=== PATIENT | male | born 1980 | race Caucasian/White ===

== ENCOUNTER 2017-06-06 10:48 | Emergency (ER) | payer OTHER ==
[2017-06-06 11:01] VITALS: TEMP 98
[2017-06-06] MEDS ORDERED: IBUPROFEN 600 MG TAB PO ONE (11:04)
[2017-06-06] MEDS ORDERED: LET GEL TOPICAL 1 EA SYR TP ONE (11:05)
--- NOTE | 2017-06-06 11:05 | EDPHY ---
H & P Stated Complaint: dropped transfer case onto rt hand ~ 30 min ago Time Seen by Provider: 06/06/17 10:55 HPI/ROS: Chief Complaint: Right hand injury HPI: 37-year-old male was working on his car when he dropped a transfer case onto his right hand. Fell approximately 2 feet. He sustained a laceration at the base of his index finger. He has been unable to flex that finger since that time. Denies any other injuries. Last tetanus shot was within the last year. ROS: 10 point Review of Systems is negative except as noted in the HPI. PMH: Denies Social History: [No] smoking, [no] alcohol, [ no recreational drug use] Family History: [non-contributory] Physical Exam: General: Awake, alert, no acute distress Right hand: He has a 2 cm laceration over his distal 2nd metacarpal just proximal to the MCP joint on his palmar aspect. He is unable to flex either his interphalangeal joints or his MCP joint. Sensations intact medially and laterally. He has full extension strength. Capillary refills less than 2 seconds. Skin: No rash - Personal History Current Tetanus Diphtheria and Acellular Pertussis (TDAP): Yes Constitutional: Initial Vital Signs Temperature (C) 36.6 C 06/06/17 10:58 Heart Rate 85 06/06/17 10:58 Respiratory Rate 18 06/06/17 10:58 Blood Pressure 174/62 H 06/06/17 10:58 O2 Sat (%) 97 06/06/17 10:58 O2 Delivery Mode Room Air Allergies/Adverse Reactions: ADHESIVES Allergy (Mild, Uncoded 09/05/10 09:56) Rash Home Medications: Medication Instructions Recorded Cephalexin [Keflex (*)] 500 mg PO Q6H #28 cap 06/06/17 Medical Decision Making - Diagnostics Imaging Results: No acute fractures or radiopaque foreign bodies per my interpretation Imaging: I viewed and interpreted images myself Procedures: Procedure: Laceration repair. Verbal consent was obtained from the patient. The 2 cm laceration on the right- hand was anesthetized in the usual fashion. The wound was irrigated, draped and explored to its base with a gloved finger. There were no deep structures involved. A tendon was identified. The wound was repaired with 3, 4-0 Ethilon simple interrupted sutures. The wound repair was uncomplicated. The procedure was performed by myself. ED Course/Re-evaluation: Case discussed with Dr. Blankenship, hand surgeon. He would like the wound irrigated. IV Ancef. A loose closure and he will see the patient in his office tomorrow for definitive repair. Patient has been irrigated with 2 L normal saline. I have done a loose closure. Patient has been bandage in splinted. Will follow up with Dr. Blankenship tomorrow. Patient sent home with a prescription for Keflex. He received 1 g of Ancef in the ED. - Data Points Medications Given: Discontinued Medications Cefazolin Sodium/Dextrose (Ancef 1 Gm (Premix)) 50 mls @ 200 mls/hr IV EDNOW ONE PRN Reason: Protocol Stop: 06/06/17 11:49 Last Admin: 06/06/17 11:49 Dose: 50 mls Ibuprofen (Motrin) 600 mg PO EDNOW ONE Stop: 06/06/17 11:05 Last Admin: 06/06/17 11:19 Dose: 600 mg Tetracaine/Epinephrine/Lidocaine (Let Gel Topical) 1 ea TP EDNOW ONE Stop: 06/06/17 11:06 Last Admin: 06/06/17 11:19 Dose: 1 ea Departure - Departure Disposition: Home, Routine, Self-Care Clinical Impression: Tendon laceration, Hand laceration Condition: Good Instructions: Laceration (ED), Tendon Laceration (ED) Additional Instructions: Leave the dressing in place until your seen by Hand surgery. Take her full course of oral antibiotics. Follow up with the hand surgeon, Dr. Blankenship, tomorrow, call tomorrow morning for the next appointment. Referrals: NONE *PRIMARY CARE P,. [Primary Care Provider] - As per Instructions Justice Blankenship MD [Medical Doctor] - As per Instructions Prescriptions: Cephalexin [Keflex (*)] 500 mg PO Q6H #28 cap
[2017-06-06] MEDS ORDERED: ceFAZolin 1 GM VIAL ONE (11:43)
[2017-06-06 14:48] VITALS: BP 102/62; PULSE 55; RESP 16; O2SAT 95
== END 2017-06-06 12:46 | disposition home or self-care (01) ==
LOC: CED 10:48
PROC: 0HQFXZZ Repair Right Hand Skin, External Approach (ICD-10-PCS; principal; 2017-06-06)
DX: S66.921A Laceration of unspecified muscle, fascia and tendon at wrist and hand level, right hand, initial encounter (principal); W20.8XXA Other cause of strike by thrown, projected or falling object, initial encounter
CPT/HCPCS: 73130-PO; 96365; J0690; L3925

== ENCOUNTER 2017-06-08 11:57 | Day surgery (SDC) | payer OTHER ==
--- NOTE | 2017-06-08 10:17 | GHP ---
[f rep st] PREOP HISTORY AND PHYSICAL DATE OF OPERATION: 06/08/2017 CHIEF COMPLAINT: Flexor tendon lacerations, right index finger. HISTORY OF PRESENTING COMPLAINT: The patient is a 37-year-old right-hand- dominant man who was moving a transfer case for an engine when he sustained a puncture laceration to his right hand in the distal palm in line with the index finger. PAST MEDICAL HISTORY: Remarkable just for multiple injuries over the years for femur, shoulder and collarbone at different times. He has no significant medical problems and is a nonsmoker. ALLERGIES: No known drug allergies. MEDICATIONS: No medications routinely. He is on Keflex right now related to the current injury. PHYSICAL EXAMINATION: GENERAL: He is a pleasant healthy-looking 37-year-old male. CARDIOVASCULAR: Heart sounds are normal. RESPIRATORY: Chest is clear with good air entry. EXTREMITIES: Inability to flex the DIP or the PIP of the index finger of the right hand. He has normal sensation. There is a clean closed laceration at the distal palmar crease level. IMPRESSION: Fit for procedure. PLAN: Exploration and repair of flexor tendons, right index finger. /[id number]/MODL MTDD
[~2017-06-08 11:57] MED LIST: ceFAZolin 2 GM/DEXTROSE 100 ML IV ONE
[2017-06-08] MEDS ORDERED: LIDOCAINE 1% 2 ML INJ ONE (12:17)
[2017-06-08] MEDS ORDERED: LIDOCAINE 1% 2 ML INJ ID PRN (12:37)
[2017-06-08] MEDS ORDERED: LR 1,000 ML IV ONE (12:37)
[2017-06-08] MEDS ORDERED: ONDANSETRON 4 MG/2 ML VIAL IVP ONE (12:46)
[2017-06-08] MEDS ORDERED: MIDAZOLAM 2 MG/2 ML VIAL IVP ONE (13:24)
--- NOTE | 2017-06-08 13:26 | PDANEPAE ---
ANE History of Present Illness S/P FINGER LAC ANE Past Medical History - Cardiovascular History Hx Hypertension: No Hx Arrhythmias: No Hx Chest Pain: No Hx Coronary Artery / Peripheral Vascular Disease: No Hx CHF / Valvular Disease: No Hx Palpitations: No - Pulmonary History Hx COPD: No Hx Oxygen in Use at Home: No Hx Sleep Apnea: No - Neurologic History Hx Cerebrovascular Accident: No Hx Seizures: No Hx Dementia: No - Endocrine History Hx Diabetes: No Hypothyroid: No Hyperthyroid: No Obesity: no - Renal History Hx Renal Disorders: No - Liver History Hx Hepatic Disorders: No - Neurological & Psychiatric Hx Hx Neurological and Psychiatric Disorders: No - Cancer History Hx Cancer: No - Surgical History Prior Surgeries: MULTIPLE ORTHOPEDIC ANE Review of Systems Review of systems is: negative - Exercise capacity Exercise capacity: >=4 METS ANE Patient History - Allergies Allergies/Adverse Reactions: ADHESIVES Allergy (Mild, Uncoded 09/05/10 09:56) Rash - Home Medications Home Medications: Acetaminophen [Tylenol Extra Strength] 06/08/17 [Last Taken 06/07/17 22:00] Ibuprofen [Advil] 200 mg PO 06/08/17 [Last Taken 06/07/17 22:00 400 mg] - NPO status NPO Status: no food or drink >8 hours NPO Since - Liquids (Date): 06/07/17 NPO Since - Liquids (Time): 22:00 NPO Since - Solids (Date): 06/07/17 NPO Since - Solids (Time): 22:00 - Anes Hx Anes Hx: no prior problems ANE Labs/Vital Signs - Vital Signs Blood Pressure: 105/69 Heart Rate: 53 Respiratory Rate: 16 O2 Sat (%): 100 Height: 187.96 cm Weight: 61.235 kg ANE Physical Exam - Airway Neck exam: FROM Mallampati Score: Class 1 - Pulmonary Pulmonary: no respiratory distress - Cardiovascular Cardiovascular: regular rate and rhythym - ASA Status ASA Status: II ANE Anesthesia Plan Anesthesia Plan: GA w LMA
[2017-06-08] MEDS ORDERED: LIDO/EPI 1% **for epidural** 30 ML SDV ONE (13:34)
[2017-06-08] MEDS ORDERED: LIDO/EPI 1% **Not for Epidural 20 ML MDV ONE (13:35)
[2017-06-08] MEDS ORDERED: PROPOFOL/EMULSION 500 MG/50 ML BOTTLE IV ONE (13:39)
[2017-06-08] MEDS ORDERED: fentaNYL 100 MCG/2 ML INJ ONE ×2 (13:42→14:29)
[2017-06-08] MEDS ORDERED: PROMETHAZINE HCL 25 MG/ML INJ IVP PRN (14:37)
[2017-06-08] MEDS ORDERED: NALOXONE HCL 0.4 MG/ML INJ IVP PRN (14:37)
[2017-06-08] MEDS ORDERED: ONDANSETRON 4 MG/2 ML VIAL IVP PRN (14:37)
[2017-06-08] MEDS ORDERED: fentaNYL 100 MCG/2 ML INJ IVP PRN ×2 (14:37)
[2017-06-08] MEDS ORDERED: HYDROmorphONE/DILAUDID 1 MG/ML SYR IVP PRN (14:37)
[2017-06-08 16:19] VITALS: BP 108/61; PULSE 53; TEMP 97.3
[2017-06-08 16:20] VITALS: RESP 16; O2SAT 99
--- NOTE | 2017-06-08 20:59 | GOP ---
[f rep st] OPERATIVE REPORT DATE OF OPERATION: 06/08/2017 SURGEON: Justice Blankenship MD PREOPERATIVE DIAGNOSIS: Laceration of flexor tendons, right index finger. POSTOPERATIVE DIAGNOSIS: Laceration of flexor tendons, right index finger. PROCEDURE PERFORMED: Repair of laceration of flexor tendons, right index finger. FINDINGS: ESTIMATED BLOOD LOSS: Less than 10 mL. DESCRIPTION OF PROCEDURE: Patient lying supine under general anesthesia, right hand and forearm wer e prepped and draped in usual fashion. The oblique laceration of the distal palmar crease in the [facility] palm was reopened and extended proximally and distally in a Claudia zigzag fashion. The proxima l ends of the tendons were brought out fairly easily and with maximal flexion of the finger, the dis sade ends were brought out. The laceration was right at the chiasm of [place] with the distal ends of the sublimis tendon being split and the proximal end still attached together. Profundus tendon was fixed 1st using a Chavez 4-strand repair using 4-0 Prolene with a 6-0 Prolene running epitendin ous suture. The superficialis slips were repaired with 5-0 Prolene [id number] sutures. The sk in was then closed with 5-0 Prolene running simple and horizontal mattress sutures. Dressing of Xer oform gauze applied followed by a fiberglass dorsal slab splint. The procedure was tolerated well. TOURNIQUET TIME: 41 minutes. /[id number]/MODL
== END 2017-06-08 16:57 | disposition home or self-care (01) ==
LOC: FSGY 11:57
PROVIDERS: ATTEND Plastic Surgery
PROC: 0LQ70ZZ Repair Right Hand Tendon, Open Approach (ICD-10-PCS; principal; 2017-06-08 13:45)
DX: S66.120A Laceration of flexor muscle, fascia and tendon of right index finger at wrist and hand level, initial encounter (principal)
CPT/HCPCS: J0690; J2250; J2405; J2704; J3010

== ENCOUNTER 2018-02-23 10:36 | Day surgery (SDC) | payer OTHER ==
--- NOTE | 2018-02-22 13:41 | GHP ---
[f rep st] PREOP HISTORY AND PHYSICAL DATE OF ADMISSION: 02/23/2018 PREOP DIAGNOSIS: Tendon adhesions, right index finger. HISTORY OF PRESENTING COMPLAINT: The patient is a 37-year-old male who sustained a laceration to the base of his right index finger in May of 2017 when a transfer case fell on it. He had repair of th e flexor tendons in late May and did well postoperatively. He has reached a point now where he has excellent passive range of motion and good but somewhat restricted active range of motion. Fibrotic tissue and adhesion of the tendon is apparent at the base of the finger. PAST MEDICAL HISTORY: He is generally healthy. He is a daily pot smoker. PAST SURGICAL HISTORY: Includes femur fracture, shoulder, wisdom teeth. ALLERGIES: Environmental allergens. MEDICATIONS: Currently, none. EXAMINATION: GENERAL: He is a healthy, lean 37-year-old male. CARDIOVASCULAR: Heart sounds are nor mal. RESPIRATORY: Chest is clear, with good air entry. IMPRESSION: Fit for procedure. PLAN: Flexor tendon tenolysis, right index finger. /[id number]/MODL
[2018-02-23] MEDS ORDERED: LR 1,000 ML IV ONE (11:09)
[2018-02-23] MEDS ORDERED: LIDOCAINE 1% 2 ML INJ ID PRN (11:09)
[2018-02-23] MEDS ORDERED: BUPIVACAINE 0.5% 30 ML SDV ONE (11:18)
[2018-02-23] MEDS ORDERED: HYDROmorphONE/DILAUDID 1 MG/ML INJ IVP PRN (11:38)
[2018-02-23] MEDS ORDERED: ONDANSETRON 4 MG/2 ML VIAL IVP PRN (11:38)
[2018-02-23] MEDS ORDERED: HYDROCODONE/APAP 5/325 TAB PO PRN (11:38)
[2018-02-23] MEDS ORDERED: ACETAMINOPHEN 500 MG TAB PO PRN (11:38)
[2018-02-23] MEDS ORDERED: fentaNYL 100 MCG/2 ML INJ IVP PRN (11:38)
[2018-02-23] MEDS ORDERED: DEXAMETHASONE 4 MG/ML VIAL IVP PRN (11:38)
[2018-02-23] MEDS ORDERED: NALOXONE HCL 0.4 MG/ML INJ IVP PRN ×2 (11:38→12:54)
[2018-02-23] MEDS ORDERED: ALBUTEROL 3 ML DEYVIAL IH PRN (11:38)
--- NOTE | 2018-02-23 11:40 | PDANEPAE ---
ANE History of Present Illness Right Index Finger ANE Past Medical History - Cardiovascular History Hx Hypertension: No Hx Arrhythmias: No Hx Chest Pain: No Hx Coronary Artery / Peripheral Vascular Disease: No Hx CHF / Valvular Disease: No Hx Palpitations: No - Pulmonary History Hx COPD: No Hx Asthma/Reactive Airway Disease: No Hx Recent Upper Respiratory Infection: No Hx Oxygen in Use at Home: No Hx Sleep Apnea: No Sleep Apnea Screening Result - Last Documented: Negative - Neurologic History Hx Cerebrovascular Accident: No Hx Seizures: No Hx Dementia: No - Endocrine History Hx Diabetes: No - Renal History Hx Renal Disorders: No - Liver History Hx Hepatic Disorders: No - Neurological & Psychiatric Hx Hx Neurological and Psychiatric Disorders: Yes Neurological / Psychiatric History Comment: bipolar no meds, uses marijuana - Cancer History Hx Cancer: No - Congenital Disorder History Hx Congenital Disorders: No - GI History Hx Gastrointestinal Disorders: Yes Gastrointestinal History Comment: hx of abd pain - Chronic Pain History Chronic Pain: No - Surgical History Prior Surgeries: MULTIPLE ORTHOPEDIC ANE Review of Systems Review of Systems: - Exercise capacity METS (RN): 5 METS ANE Patient History - Allergies Allergies/Adverse Reactions: ADHESIVES Allergy (Mild, Uncoded 09/05/10 09:56) Rash - Home Medications Home Medications: Ibuprofen [Advil] 06/08/17 [Last Taken 1 Week Ago ~02/16/18] - NPO status NPO Since - Liquids (Date): 02/23/18 NPO Since - Liquids (Time): 07:30 NPO Since - Solids (Date): 02/23/18 NPO Since - Solids (Time): 00:00 - Smoking Hx Smoking Status: Former smoker - Family Anes Hx Family Hx Anesthesia Complications: none ANE Labs/Vital Signs - Vital Signs Blood Pressure: 117/73 Heart Rate: 52 Respiratory Rate: 16 O2 Sat (%): 97 Height: 187.96 cm Weight: 61.235 kg ANE Physical Exam - Airway Neck exam: FROM Mallampati Score: Class 2 Mouth exam: normal dental/mouth exam - Pulmonary Pulmonary: clear to auscultation - Cardiovascular Cardiovascular: regular rate and rhythym - ASA Status ASA Status: I ANE Anesthesia Plan Anesthesia Plan: GA w LMA
[2018-02-23] MEDS ORDERED: fentaNYL 100 MCG/2 ML INJ ONE (11:43)
[2018-02-23] MEDS ORDERED: PROPOFOL 200 MG/20 ML VIAL ONE (11:43)
[2018-02-23] MEDS ORDERED: ceFAZolin 2 GM/SWFI 2 GM/20 ML SYR IVP ONE (11:47)
[2018-02-23] MEDS ORDERED: HYDROmorphONE/DILAUDID 2 MG/ML INJ IVP PRN (12:00)
[2018-02-23] MEDS ORDERED: ceFAZolin 1 GM VIAL ONE ×2 (12:13)
[2018-02-23] MEDS ORDERED: ONDANSETRON 4 MG/2 ML VIAL ONE (12:36)
[2018-02-23] MEDS ORDERED: BACITRACIN ZINC 14.2 GM OINTTUBE TP ONE (12:43)
--- NOTE | 2018-02-23 12:55 | POSTANESTH ---
Post Anesthetic Evaluation Cardiovascular Status: Normal, Stable Respiratory Status: Normal, Stable Level of Consciousness/Mental Status: Alert and Oriented Pain Control: Adequate, Prn Tx Ordered Nausea/Vomiting Control: Adequate, Prn Tx Ordered Complications Possibly Related to Anesthesia: None Noted
--- NOTE | 2018-02-23 12:57 | POSTOPPROG ---
Post Op Note Date of Operation: 02/23/18 Surgeon: Justice Blankenship Anesthesia: LMA Pre-op Diagnosis: flexor tendon adhesions right index Post-op Diagnosis: same Procedure: flexor tenolysis right index Inf/Abcess present in the surg proc area at time of surgery?: No EBL: Minimal
[2018-02-23 14:46] VITALS: BP 114/70
--- NOTE | 2018-02-23 23:12 | GOP ---
[f rep st] OPERATIVE REPORT DATE OF OPERATION: 02/23/2018 SURGEON: Justice Blankenship MD PREOPERATIVE DIAGNOSIS: Flexor tendon adhesions, right index finger. POSTOPERATIVE DIAGNOSIS: Flexor tendon adhesions, right index finger. PROCEDURE PERFORMED: Flexor tenolysis, right index finger. FINDINGS: ESTIMATED BLOOD LOSS: Less than 5 mL. DESCRIPTION OF PROCEDURE: With the patient lying supine under general anesthesia, right hand and forearm were prepped and draped in the usual fashion. Esmarch bandage was applied and tourniquet was inflated to 250 mmHg. Incision was made following the zigzag scar pattern present from previous tendon repair surgery, extending from the volar base of the index finger back to about mid palm. Skin flaps were raised and dissection was taken down sharply to the flexor tendons. There were just some minimal adhesions present proximally and out distally at the level of the repairs, some moderate degree of adhesions were present and these were freed up. The suture in the superficialis tendon had some protruding ends at the knot and the suture was therefore removed from the superficialis. Once adequate mobility was obtained, the finger sat in a more natural cascade with the other fingers. Closure was carried out with 5-0 Prolene simple and horizontal mattress sutures. Procedure was tolerated well. TOURNIQUET TIME: 12 minutes. /[id number]/MODL MTDD
== END 2018-02-23 14:40 | disposition home or self-care (01) ==
LOC: FSGY 10:36
PROVIDERS: ATTEND Plastic Surgery
PROC: 0LN70ZZ Release Right Hand Tendon, Open Approach (ICD-10-PCS; principal; 2018-02-23 12:00)
DX: M67.841 Other specified disorders of synovium, right hand (principal); S66.120S Laceration of flexor muscle, fascia and tendon of right index finger at wrist and hand level, sequela
CPT/HCPCS: J0171; J0690; J2405; J2704; J3010